=== PATIENT | male | born 1965 | race Caucasian/White ===

== ENCOUNTER 2024-04-30 14:25 | Observation (INO) | payer OTHER, SELFPAY ==
[2024-04-30] VITALS (24 sets, daily range): BP systolic 85–139; BP diastolic 19–78; PULSE 81–106; BMI 22.0; BMI 21.7
[2024-04-30 07:23] LABS: ALT (SGPT) 21 U/L (0-50); AST (SGOT) 25 U/L (17-59); Albumin 3.9 g/dl (3.5-5.0); Alkaline Phosphatase 44 U/L (38-126); Blood Urea Nitrogen 29 mg/dl (9-20); Carbon Dioxide 23 mmol/L (22-30); Chloride 103 mmol/L (98-107); Estimated Creatinine Clearance 100 ml/min; Glucose 97 mg/dl (70-99); Potassium 3.9 mmol/L (3.5-5.1); Sodium 137 mmol/L (135-145); Total Bilirubin 1.7 mg/dl (0.2-1.3); Total Protein 6.3 g/dl (6.3-8.2); eGFR > 60.00
[2024-04-30 07:27] LABS: COVID-19 Antigen Positive (Negative)
[2024-04-30 07:34] LABS: Troponin I 0.015 ng/ml
[2024-04-30 07:41] LABS: Hematocrit 39.2 % (39.0-52.0); Hemoglobin 13.8 g/dL (13.0-18.0); Mean Corp Hgb Conc. 35.2 g/dL (33.0-37.0); Mean Corpuscular Hgb 32.4 pg (27.0-31.0); Red Blood Cell Count 4.26 10^6/uL (4.70-6.10); Red Cell Dist. Width 13.2 % (11.5-14.5); White Blood Cell Count 4.8 10^3/uL (4.8-10.8)
[2024-04-30 08:56] LABS: Platelet Count 103 10^3/uL (130-400)
[2024-04-30 08:57] LABS: Absolute Neutrophils -Man Diff 2.9 10^3/uL (1.4-6.5); Band Neutrophils 6 % (0-3); Lymphocytes 17 % (20-51); Mean Platelet Volume 10.9 fL (7.4-10.4); Monocytes 21 % (2-9); Segmented Neutrophils 56 % (42-75)
[2024-04-30 08:58] LABS: Platelets Checked Yes
[2024-04-30 08:59] LABS: Normal RBC Morphology Yes; Total Cells Counted 100
[2024-04-30] MEDS: TYLENOL 650 MG PO (09:05)
[2024-04-30] MEDS: NSS 1000 IV ×2 (09:12→11:22)
--- NOTE | 2024-04-30 10:50 | ED.GENMED ---
History of Present Illness
General
Chief Complaint: Fainting/Passed Out
Source: patient and significant other
Exam Limitations: none
Time Seen by Provider: 04/30/24 08:07
Nursing documentation reviewed up to this point in time: agreed with
History of Present Illness
History of Present Illness:
pt is a 59 y/o M
here after 2 syncope events
pt has been sick with cold symptoms x 2 days, fever, some coughing, bodyaches, a little confusion per who said he ws talking funny things 2 nights ago
hasn't really been eating well, doesn't like taking meds so he hasn't really been treating the fever
also not feeling well so she was sleeping downstairs and at 5 am she heard a thump and came up to find him in bathroom face up but he had cut his lip and chipped his 2 front teeth
he says he felt lightheaded but can't really tell me exactly what happened, he believes he passed out.
she helped him up and then he had diarrhea and then was walking back to the bedroom and again passed out face down on the ground and hit his head
called 911 at that point
has abrasion/swelling to his forehead
he feels weak
mild neck pain
no numbnes/tinglig/weakness in arms or elgs, no chest pain, no sob
he has never passed out before
no cardiac problems
Phy Exam
Physical Exam
Physical Exam:
GENERAL: Alert , a little 'off' goofy - seems mildly ocnfused
head: heatmoa and abrasion superfiical L forehead
EYE: pupils equal and reactive
NECK: Supple nontender but some pain with omvement
ENT: b/l TM s clear, pharynx erythematous but no tonsillar hypertrophy or exudates
+ front upper teeth chip fractures
lower lip and upper lip abrasions
CARDIAC: Regular rate and rhythm, no edema
LUNGS: Clear breath sounds bilaterally, no acute respiratory distress, no wheezes/rales/rhonchi, occ cough
ABDOMEN: Soft, without focal tenderness, no r/g, no cvat, normal bowel sounds
NEUROLOGICAL: Alert and oriented, but just seems off; a little globally confused; moving all extremities; nonfocal
SKIN: Warm and dry, skin intact.
abrasion lefrt forehead
MUSCULOSKELETAL: No edema, well perfused.
PSYCH: Normal and appropriate interaction.
Course
Orders/Labs/Results
Orders:
Orders
04/30/24 06:33
EKG [Electrocardiogram (*1)] Urgent
Reason for Study: Syncope
04/30/24 06:35
EKG- Treatment ONCE
04/30/24 06:47
Complete Blood Count/With Diff Urgent
Comprehensive Metabolic Panel Urgent
Magnesium Urgent
Comment: ADD ON
Manual Differential Urgent
Troponin I Urgent
04/30/24 06:53
COVID-19 Antigen Urgent
Source: Nasal Swab
Influenza A+B Rapid Molecular Urgent
BIJAL Source: Nasal Swab
Specimen Description:
04/30/24 08:53
CT Cervical Spine W/o Iv Contr Urgent
Comment:
Reason For Exam: neck pain after syncope
CT Facial Bones W/o Iv Contras Urgent
Comment:
Reason For Exam: fall syncope
0.9% Sodium Chloride 1000 ml [Nss] 1,000 ml IV BOLUS
Acetaminophen [Tylenol] 650 mg PO NOW STA
04/30/24 08:54
CT Head W/o Iv Contrast Urgent
Comment:
Reason For Exam: hit head, syncope, +loc
Cardiac Monitoring- Treatment ONCE
04/30/24 08:55
CR Chest - 2 Views Urgent
Comment:
Reason For Exam: cough, fever, syncope
04/30/24 Lunch
Regular
At Your Request: Full Participation
04/30/24 11:09
0.9% Sodium Chloride 1000 ml [Nss] 1,000 ml IV BOLUS
04/30/24 11:20
Troponin I Urgent
04/30/24 13:56
Admit/Transfer Patient As Directed
Co-Sign Provider:
Level of Care: Observation services
Assign to:: Telemetry
Physician / Group: Mini Bourne
Diagnosis: Syncope, Covid
Reason for Telemetry: Syncope
Date to Stop Telemetry: 05/02/24
Time to Stop Telemetry: 11:00
04/30/24 13:57
Code Status As Directed
Resuscitation Status: Full Code
PRN Pain Medication Management As Directed
May give lesser potent ordered pain med per pt: Yes
preference::
Protocol:: Medication orders for pain may be administered in a
manner that supports deferring to patient preference
when the pt is:
- Requesting an ordered lesser potent pain medication.
Least to most potent pain medications are defined
as: acetaminophen < NSAID < tramadol < opioids
(morphine, oxycodone, hydromorphone).
- Requesting a lesser dose of the same medication IF
ORDERED.
- Requesting a less intrusive route of administration
if both routes are prescribed by the provider (PO <
IV).
04/30/24 13:58
Add On- LAB Routine
Tests Added?: magnesium
04/30/24 15:31
Acetaminophen [Tylenol] 650 mg PO Q4HPRN PRN
Lactated Ringers [Lr] 1,000 ml IV 100 mls/hr
04/30/24 15:31
Activity As Directed
Activity Level: As Tolerated
Orthostatic Vital Signs As Directed
Orthostatic VS Frequency: BID
Comment: please TT me results
Vital Signs As Directed
Frequency: Per unit guidelines
DX Deep Vein Thrombosis Video Routine
04/30/24 15:45
Nirmatrelvir/Ritonavir [Paxlovid 2X150 mg-100 mg Dose Pack] 1 dose PO BID
04/30/24 18:00
Enoxaparin Sodium [Lovenox] 40 mg SC QPM
04/30/24 19:00
Troponin I ONCE@1900
05/01/24 06:00
Basic Metabolic Panel IN AM
Complete Blood Count/With Diff IN AM
Magnesium IN AM
05/02/24 11:00
DC Protocol for Telemetry ONCE
Abnormal Lab Results
04/30/24 04/30/24
06:47 06:53
RBC 4.26 L 10^6/uL
(4.70-6.10)
MCH 32.4 H pg
(27.0-31.0)
Plt Count 103 L 10^3/uL
(130-400)
MPV 10.9 H fL
(7.4-10.4)
Band Neutrophils 6 H %
(0-3)
Lymphocytes (Manual) 17 L %
(20-51)
Monocytes (Manual) 21 H %
(2-9)
BUN 29 H mg/dl
(9-20)
Calcium 8.0 L mg/dl
(8.4-10.2)
Total Bilirubin 1.7 H mg/dl
(0.2-1.3)
SARS-CoV-2 Antigen Positive A
(Negative)
04/30/24 06:47
04/30/24 06:47
Vital Signs
Initial and Last Documented VS:
Initial Vital Signs
Temp Pulse Resp BP Pulse Ox
36.6 C 76 21 102/68 97
04/30/24 06:16 04/30/24 06:16 04/30/24 06:16 04/30/24 06:16 04/30/24 06:16
Last Documented Vital Signs
Temp Pulse Resp BP Pulse Ox
36.6 C 57 18 108/71 96
04/30/24 15:32 04/30/24 15:32 04/30/24 15:32 04/30/24 15:32 04/30/24 15:32
MDM/Problems Addressed
Differential Diagnosis Includes:
concussion, head injury, abrasion contusion, syncope, orthostasis, TME
MDM/Problems Addressed:
59 y/o M with no chronc medical problems
2 days fever, some mild confusion per ; dry cough
syncope x 2 in the bathroom today; heard thump then got to him, had lip abrasion and dental fx; he stood up, had diarrhea, walked to get out of bathroom and syncope again, hit forehead; no thinners
a ltitle goofy here but awake and alert
dry mouth, hasn't been eating
COVID POS
wbc normal but bands
bun 29, cr normal
ct head/neck/facial bones neg
got tylenola nd 1 liter
cannot stand up without near syncope; orthos + after the 1 liter; ekg normal (really drops from 106/69 hr 80 lying to 85/47 with hr 97 with standing)
more fluids ordered for orthostasis
*Critical Care Note
Total Time (30-74mins, 75-104mins- exclusive of procedures): Not Applicable
ED Attending Note
-
Portions of this chart may have been created with voice recognition software.� Occasional wrong word or��sound alike� substitutions may have occurred due to the inherent limitations of voice recognition software.
Discharge Plan
Departure
Patient Disposition: Admit
Date of Disposition: 04/30/24
Time of Disposition: 11:09
Admit to: Telemetry
Presentation/result/management discussed w/ accepting MD/DO: Hospitalist
Condition: Fair
Covid-19: Confirmed COVID-19
Discharge Problem:
COVID-19, Orthostatic hypotension, Bandemia, Head injury, Syncope
Interventions
Interventions:
*Risk Screen - Suicide Last Done: 04/30/24 06:16
*General Assessment Last Done: 04/30/24 06:16
*Neglect/Abuse Screening Last Done: 04/30/24 06:16
ED- Fall Risk Assessment Last Done: 04/30/24 06:36
*ED COVID-19 Vaccine History Last Done: 04/30/24 06:55
*Nursing Disposition Last Done: 04/30/24 15:25
ED- Cardiac Assessment Last Done: 04/30/24 06:36
ED- Neurological Assessment Last Done: 04/30/24 06:36
Discharge Date and Time
Discharge Date/Time: 04/30/24 15:25
[2024-04-30 11:58] LABS: Troponin I < 0.012 ng/ml
--- NOTE | 2024-04-30 13:35 | HPS.HSE ---
Family Physician
-
Family Physician: Denise Pendleton PA-C
Chief Complaint
-
syncope
History of Present Illness
Mr. Darshan Myrick is a 59 yo man without significant past medical history who presents to the ER with syncope x 2.
Patient has had fevers x 2 days (up to 102 yesterday evening) and dry cough. heard patient fall in the bathroom, noticed he passed out. He got up and had diarrhea then had syncope again. He was found to have an abrasion on his forehead.
called 911. Patient hasn't been eating well over the past 2 days and barely drinking.
+ headache. no chest pain, no shortness of breath. No current abdominal pain. no LE swelling. No vomiting but has felt nauseated without appetite.
Medical History
Past Medical History
Past Medical History: Reports None
Past Surgical History: Reports None
Social History
Tobacco: Smoker (1 cigarette in evenings)
Alcohol: None
Family History
Family History: Not pertinent
Allergies / Home Medications
Allergies reflects when Allergies were last updated in [employer].
Home Medications with original date entered in [employer]
Allergy/Medication List:
Allergies
Allergy/AdvReac Type Severity Reaction Status Date / Time
No Known Allergies Allergy Unverified 04/30/24 09:04
Home Medications
No Meds [No Current Medications] 04/30/24
Review of Systems
-
History Source: Patient
A 12 point ROS was completed and negative except as noted: Yes
Physical Exam
Vital Signs
Vital Signs
Temp Pulse Resp BP Pulse Ox
97.9 F 81 20 107/68 97
04/30/24 06:16 04/30/24 13:00 04/30/24 13:00 04/30/24 12:30 04/30/24 13:00
Physical Exam
General: No Apparent Distress
HEENT: Other (abrasion left forehead )
Respiratory: Clear; No Wheezes
Cardiac: S1/S2 and Regular Rhythm
GI: Soft and Non Tender
Musculoskeletal: No Edema
Skin: Warm and Dry; No Rash
Neuro: AO x 3
Psych: Calm
Laboratory Results
-
04/30/24 06:47
04/30/24 06:47
Laboratory Results
Total Bilirubin 1.7 mg/dl (0.2-1.3) H 04/30/24 06:47
AST 25 U/L (17-59) 04/30/24 06:47
ALT 21 U/L (0-50) 04/30/24 06:47
Alkaline Phosphatase 44 U/L (38-126) 04/30/24 06:47
Troponin I < 0.012 ng/ml 04/30/24 11:20
Data Reviewed
-
Diagnostic Radiology: Report Reviewed by me
Lab Data: Labs Reviewed by me
Impression/Plan
-
Mr. Darshan Myrick is a 59 yo man without significant past medical history who presents to the ER with syncope x 2 in setting of poor PO intake and sepsis 2/2 COVID.
Triage VS: T 36.6C, P 76, RR 21, BP 102/68, SpO2 97%
LABS: WBC 4.8, Hg 13.8, PLT 103, bands 6%, Na 137, K+ 3.9, Cl 103, BUN 29, Cr 0.9, Ca 8.0, T. Bili 1.7, AST 25, ALT 21, Alk Phos 44, Troponin negative x 2
Covid positive
Influenza negative
EKG: NSR @ 77, no ST/T wave abnormalities
CXR
IMPRESSION:
No acute cardiopulmonary process.
HEAD CT
FACIAL BONES CT
CERVICAL SPINE CT
IMPRESSION:
1. No acute intracranial abnormality noted.
2. No displaced facial bone fractures.
3. No acute fracture or subluxation of the cervical spine.
MAR 1L x 2, tylenol
Syncope
Orthostatic Hypotension - positive orthostats reported in the ER
-2/2 poor PO intake in setting of Covid
-imaging without bleed or fractures
-admit to telemetry
-obtain one more Troponin
-IVF
-orthostats BID
Sepsis 2/2 Covid-19
-risks/benefits Paxlovid discussed with patient and we will start this evening
-patient is not hypoxic
DVT PPx Lovenox subQ
FULL CODE
[2024-04-30 14:29] LABS: Magnesium 1.9 mg/dl (1.6-2.3)
[2024-04-30] MEDS: PAXLOVID 2X150 MG-100 MG DOSE PACK 1 DOSE PO (16:32)
[2024-04-30] MEDS: LR 1000 IV (16:32)
[2024-04-30] MEDS: LOVENOX 40 MG SC (16:32)
--- NOTE | 2024-04-30 17:13 | PTCARENOTE ---
pt aaox3. states he feels a little foggy. ambulates to bathroom walk along. pupils 2 reactive. room air breath sounds diminished a base. ivf running as ordered. instructed pt to call for nurse when needing to get up. he states he understands.
abrasions noted on forehead left cheek and right lip form home fall.
[2024-04-30 18:35] LABS: Troponin I 0.013 ng/ml
[2024-05-01] MEDS: LR 1000 IV (02:34)
[2024-05-01 03:01] VITALS: BP 125/73
[2024-05-01 07:24] LABS: % Basophils 0.5 % (0-2); % Eosinophils 0.7 % (0-6); % Immature Granulocytes 0.2 % (0-0.5); % Lymphocytes 37.6 % (20.5-51.1); % Monocytes 16.1 % (1.7-9.3); % Neutrophils 44.9 % (42.2-75.2); Absolute Lymphocytes 1.6 10^3/uL (1.2-3.4); Absolute Monocytes 0.7 10^3/uL (0.1-0.6); Absolute Neutrophils 1.9 10^3/uL (1.4-6.5); Hematocrit 39.4 % (39.0-52.0); Hemoglobin 13.6 g/dL (13.0-18.0); Mean Corp Hgb Conc. 34.5 g/dL (33.0-37.0); Mean Corpuscular Hgb 31.2 pg (27.0-31.0); Mean Corpuscular Volume 90.4 fL (80.0-94.0); Mean Platelet Volume 10.4 fL (7.4-10.4); Nucleated Red Blood Cells % 0 % (-); Platelet Count 112 10^3/uL (130-400); Red Blood Cell Count 4.36 10^6/uL (4.70-6.10); White Blood Cell Count 4.2 10^3/uL (4.8-10.8)
[2024-05-01 07:42] LABS: Blood Urea Nitrogen 22 mg/dl (9-20); Calcium 8.2 mg/dl (8.4-10.2); Carbon Dioxide 24 mmol/L (22-30); Chloride 103 mmol/L (98-107); Estimated Creatinine Clearance 111 ml/min; Glucose 88 mg/dl (70-99); Potassium 4.2 mmol/L (3.5-5.1); Sodium 135 mmol/L (135-145); eGFR > 60.00
--- NOTE | 2024-05-01 07:42 | W.PN.HOSP.TC ---
Today's Communication/Plan
-
expect DC later today as long as eating and drinking OK
Assessment / Plan
Assessment / Plan
Mr. Darshan Myrick is a 59 yo man without significant past medical history who presents to the ER with syncope x 2 in setting of poor PO intake and sepsis 2/2 COVID.
CXR
IMPRESSION:
No acute cardiopulmonary process.
HEAD CT
FACIAL BONES CT
CERVICAL SPINE CT
IMPRESSION:
1. No acute intracranial abnormality noted.
2. No displaced facial bone fractures.
3. No acute fracture or subluxation of the cervical spine.
Syncope
Orthostatic Hypotension - positive orthostats reported in the ER
-2/2 poor PO intake in setting of Covid
-imaging without bleed or fractures
-admitted to telemetry; Troponin negative; no telemetry events overnight
-receiving IVF
-can DC later today if eats and drinks OK
Sepsis 2/2 Covid-19
-risks/benefits Paxlovid discussed with patient and we will start this evening
-patient is not hypoxic
DVT PPx Lovenox subQ
FULL CODE
Anticipated Discharge: Within 24 hours
Subjective/Interval History
-
Date of Service: May 01, 2024
feeling better this morning
ate something last night
Objective Data
-
Labs:
Laboratory Results
05/01/24
07:01
WBC 4.2 L
Hgb 13.6
Hct 39.4
Plt Count 112 L
Sodium Pending
Potassium Pending
Chloride Pending
Carbon Dioxide Pending
BUN Pending
Creatinine Pending
Glucose Pending
Calcium Pending
Vital Signs:
Vital Signs
Temp Pulse Resp BP Pulse Ox
99.5 F 82 18 125/73 98
05/01/24 03:01 05/01/24 03:01 05/01/24 03:01 05/01/24 03:01 05/01/24 03:01
I&O
04/30/24 05/01/24 05/02/24
06:59 06:59 06:59
Intake Total 1400 / 1400
Balance 1400 / 1400
Review of Systems
-
History Source: Patient
All other systems: Reviewed and negative
Physical Exam
-
General: No Apparent Distress and Other (appears fatigued)
HEENT: PERRLA
Respiratory: Clear to Auscultation; Negative Wheezes
Cardiac: Regular Rhythm and S1/S2
GI: Soft and Nontender
Musculoskeletal: No Edema
Skin: Warm and Dry; Negative Rash
Neuro: AO x 3
Psych: Calm
Data Reviewed
-
Diagnostic Radiology: Report Reviewed by me
Labs: Labs Reviewed by me
[2024-05-01 08:10] VITALS: BP 120/74; BP 123/78; BP 124/67; PULSE 81; PULSE 85
[2024-05-01] MEDS: PAXLOVID 2X150 MG-100 MG DOSE PACK 1 DOSE PO (09:05)
--- NOTE | 2024-05-01 10:15 | W.DS.TRANS ---
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
-
Discharge Instructions:
Discharge Diagnosis/Procedures Dehydration, Covid-19
Diet Regular
Additional Diets It is important that you stay hydrated. If not
eating well then drink fluids with electrolytes
(Gatorade)
Activity As tolerated
Driving Restrictions As prior to admission
Bathing Restrictions None
Instructions: Dehydration in adults - ED discharge instructions
Stand-Alone Forms:
Changes to Home Medications: Yes
Discharge Medications:
DC Medications w/original date entered in [employer]
nirmatrelvir 300 mg (150 mg x2)-ritonavir 100 mg tablet,dose pack (Paxlovid) 1 ea PO BID #30 ea 05/01/24
Home Medication Changes
addition of Paxlovid
Pending Results: No
--- NOTE | 2024-05-01 11:25 | CM ---
CM reviewed medical records. Plan for discharge today. No needs noted.
PLAN: Home no needs.
--- NOTE | 2024-05-01 13:52 | W.DCSUMMARY ---
Discharge Summary
Discharge Data
Date of Admission: 04/30/24
Date of Discharge: 05/01/24
-
Pending Results: No
Hospital Course
Discharging Physician : Dr. Mini Bourne
Disposition : Home
Primary care physician : Dr. Denise Pendleton
Principal Discharge diagnosis : Syncope, Orthostatic Hypotension, Covid
Hospital Course :
Mr. Darshan Myrick is a 59 yo man without significant past medical history who presents to the ER with syncope, in setting of fever x 2 days and cough, poor PO intake. Triage vitals stable, he was orthostatic. Labs with WBC 4.8, bands 6%, creatinine
0.9, Troponin negative x 2. Covid Positive, Influenza negative. CXR without acute disease.
He was given 2L IVF and admitted to medicine for observation. He was started on Paxlovid. Over next 24 hours, orthostats repeated and negative. His appetite improved and he was able to eat and drink prior to discharge. He has 4 more days of
Paxlovid. He is told to follow up closely with his PCP.
Time spent on discharge was 31 minutes.
Important imaging findings :
CXR
IMPRESSION:
No acute cardiopulmonary process.
Procedure findings :
Discharge Plan
-
Patient Disposition: Home (Routine Discharge)
Discharge Diagnosis/Procedures: Dehydration, Covid-19
Diet: Regular
Additional Diets: It is important that you stay hydrated. If not eating well then drink fluids with electrolytes (Gatorade)
Activity: As tolerated
Driving Restrictions: As prior to admission
Bathing Restrictions: None
Instructions: Dehydration in adults - ED discharge instructions
Referrals:
Denise Pendleton PA-C [Family Provider] - in less than 1 week
Additional Discharge Medication Instructions: You have 8 more doses (4 more days) of Paxlovid. Take as instructed (2 pills Nirmatrelvir 150mg + 1 pill Ritonavir 100mg) - twice a day x 4 more days.
Please get your flu shot when you are recovered from Covid.
Prescriptions:
New
Paxlovid 300 mg (150 mg x 2)-100 mg Tablets,Dose Pack
1 ea PO BID Qty: 30 0RF
Rx Instructions:
Follow instructions of dose pack -you only need 8 more doses (you received 2 doses in the hospital)
Discharge Orders:
Discharge Patient (As Directed); Ordered 05/01/24
Ordered By: Mini Bourne
Discharge Date and Time
Discharge Date/Time: 05/01/24 11:45
Print Language: [id number]
== END 2024-05-01 11:45 | disposition home or self-care (01) ==
LOC: 1 ACUTE 14:25
PROVIDERS: Physician Assistant; ADMITTING PHYSICIAN Student in an Organized Health Care Education/Training Program; EMERGENCY PHYSICIAN Emergency Medicine; FAMILY PHYSICIAN Physician Assistant Medical
DX: U07.1 COVID-19 (principal); S00.81XA Abrasion of other part of head, initial encounter; F17.210 Nicotine dependence, cigarettes, uncomplicated; I95.1 Orthostatic hypotension; E86.0 Dehydration; W18.39XA Other fall on same level, initial encounter
CPT/HCPCS: 70450; 70486; 71046; 72125; 80048; 80053; 83735; 84484; 85025; 87502; 87811; 93005; 96360; 96361; 99285; G0378

== ENCOUNTER → 2024-07-04 13:53 | Outpatient (REF) | payer OTHER, SELFPAY | LOC: RAD 13:53 | PROVIDERS: ATTENDING PHYSICIAN Nurse Practitioner Family | DX: M25.572 Pain in left ankle and joints of left foot (principal) | CPT/HCPCS: 73610 ==